=== PATIENT | male | born 2005 | race Caucasian/White ===

== ENCOUNTER 2025-04-13 20:49 | Emergency (ER) | payer OTHER, SELFPAY ==
[2025-04-13 21:49] VITALS: BMI 28.1
--- NOTE | 2025-04-13 22:03 | ED.GENMED ---
History of Present Illness
General
Chief Complaint: Musculo-Skeletal Complaint
Source: patient
Exam Limitations: none
Time Seen by Provider: 04/13/25 21:43
Nursing documentation reviewed up to this point in time: agreed with
History of Present Illness
History of Present Illness:
Patient reports he was standing in a garbage can trying to push out leaves with his legs when he fell and twisted his knee and right ankle. He denies any other injuries.
Phy Exam
General Physical Exam
General Presentation: no apparent distress
General age: appears stated age
General Skin: warm and dry
General Habitus: normal
General Mental: alert
General Hydration: appears well hydrated
Neurological Exam
Neurological Exam: alert and oriented x3
Musculoskeletal Exam
Musculoskeletal Exam: full ROM and other (Strong distal pulses right lower extremity no obvious swelling to right knee mild medial discomfort no obvious swelling to right ankle right lateral discomfort, no proximal tib-fib tenderness no bony
tenderness able to flex/extend knee )
Skin Exam
Skin Exam: normal color and warm/dry
Psychiatric Exam
Psychiatric Exam: normal mood/affect
Course
Orders/Labs/Results
Orders:
Orders
04/13/25 20:59
CR Leg Tibia/fibula Right 2 Vw Urgent
Comment:
Reason For Exam: pain
Knee, Right 4 or More Views [CR Knee- Right 4 Or More View*] Urgent
Comment:
Reason For Exam: pain
04/13/25 22:02
Dominic Wrap Right-Treatment ONCE
Comment: right ankle
Crutches-Treatment ONCE
Knee Immobilizer Right-Treatme ONCE
04/13/25 22:03
Vital Signs- Treatment ONCE
Frequency: Once
Vital Signs
Initial and Last Documented VS:
Initial Vital Signs
Temp Pulse Resp Pulse Ox
98.4 F 92 16 98
04/13/25 20:55 04/13/25 20:55 04/13/25 20:55 04/13/25 20:55
Last Documented Vital Signs
Temp Pulse Resp BP Pulse Ox
98.4 F 92 16 145/77 98
04/13/25 20:55 04/13/25 20:55 04/13/25 20:55 04/13/25 22:12 04/13/25 22:03
MDM/Problems Addressed
Differential Diagnosis Includes:
Not limited to knee sprain strain versus ankle sprain strain/fracture
MDM/Problems Addressed:
No obvious fractures on x-ray symptoms are consistent with knee sprain and ankle sprain will DC with immobilizer crutches and Dominic wrap. Discussed close outpatient follow-up with Ortho if needed.
*Radiology
Radiology exam reviewed: radiology read reviewed
*Pulse Oximetry
SaO2: 98
Oxygen Mode of Delivery: Room air
Patient hypoxic: no
*Critical Care Note
Total Time (30-74mins, 75-104mins- exclusive of procedures): Not Applicable
ED Attending Note
-
Portions of this chart may have been created with voice recognition software.� Occasional wrong word or��sound alike� substitutions may have occurred due to the inherent limitations of voice recognition software.
Discharge Plan
Departure
Patient Disposition: Home (Routine Discharge)
Date of Disposition: 04/13/25
Time of Disposition: 22:07
Patient with high blood pressure during this ER visit?: Yes
Condition: Fair
Discharge Problem:
Knee sprain, Ankle sprain
Instructions: How to Use Crutches, Knee Sprain (DC), Ankle sprain - ED (DC)
Referrals:
Edwar Sheffield MD [Active, Orthopedics]
Activity Restrictions/Additional Instructions:
As discussed wear immobilizer to your knee for support and Dominic wrap to your ankle. Remove however at night while sleeping. Keep elevated as much as possible. Ice to affected areas for the next 24 hours 20 minutes at a time several times a day.
Ibuprofen as needed for discomfort ;follow-up with family doctor in the next several days and orthopedics if needed. Return if any worsening of symptoms
Interventions
Interventions:
*Risk Screen - Suicide Last Done: 04/13/25 20:55
*General Assessment Last Done: 04/13/25 20:55
*Neglect/Abuse Screening Last Done: 04/13/25 20:55
*ED- Fall Risk Assessment Last Done: 04/13/25 20:55
*ED COVID-19 Vaccine History Last Done: 04/13/25 20:55
*ED Influenza Vaccine History Last Done: 04/13/25 20:55
ED-Musculoskeletal Assessment Last Done: 04/13/25 21:49
Discharge Date and Time
Print Language: LITHUANIAN
[2025-04-13 22:12] VITALS: BP 145/77
== END 2025-04-13 22:42 | disposition home or self-care (01) ==
LOC: EMR 20:49
PROVIDERS: EMERGENCY PHYSICIAN Student in an Organized Health Care Education/Training Program; FAMILY PHYSICIAN Nurse Practitioner Family
DX: S83.91XA Sprain of unspecified site of right knee, initial encounter (principal); S93.401A Sprain of unspecified ligament of right ankle, initial encounter; X50.1XXA Overexertion from prolonged static or awkward postures, initial encounter
CPT/HCPCS: 99283; 29505; 73564; 73590